=== PATIENT | male | born 1995 | race Two or more races ===

== ENCOUNTER 2016-04-12 05:02 | Emergency (ER) | payer OTHER ==
[2016-04-12 05:10] VITALS: BP 139/87; PULSE 102; TEMP 97.6; BMI 23.5
== END 2016-04-12 05:30 | disposition left against medical advice (07) ==
LOC: ED 05:02
DX: F10.10 Alcohol abuse, uncomplicated (principal); V49.9XXA Car occupant (driver) (passenger) injured in unspecified traffic accident, initial encounter; Y93.9 Activity, unspecified; Y92.410 Unspecified street and highway as the place of occurrence of the external cause
CPT/HCPCS: 99285